=== PATIENT | female | born 1945 | race Caucasian/White ===

== ENCOUNTER → 2016-10-04 | Outpatient (CLI) | payer OTHER, MEDICARE ==
[2016-10-04 15:16] LABS: BASOPHILS # (AUTO) 0.07 10*3/UL; HEMOGLOBIN 13.5 g/dL (12.0-16.0); IMM GRAN % (AUTO) 0.1 % (0-5); IMM GRAN# (AUTO) 0.01 10*3/UL; LYMPHOCYTES # (AUTO) 2.56 10*3/uL; LYMPHOCYTES % (AUTO) 36.2 % (10-50); MEAN CORPUSCULAR HEMOGLOBIN 30.3 PG (27-31); MEAN CORPUSCULAR HGB CONC 33.8 g/dL (33-37); MEAN PLATELET VOLUME 9.3 FL (7.4-12.2); MONOCYTES # (AUTO) 0.54 10*3/UL (0.3-0.8); MONOCYTES % (AUTO) 7.6 % (5-15); NEUTROPHILS # (AUTO) 3.62 10*3/UL; NEUTROPHILS % (AUTO) 51.1 % (50-80); PLATELET MORPHOLOGY COMMENT NORMAL MORPHOLOGY (NORM); RDW COEFFICIENT OF VARIATION 14.1 % (11.5-14.5); RED BLOOD COUNT 4.45 10^6/uL (4.20-5.40); WHITE BLOOD COUNT 7.08 10^3/uL (4.8-10.8)
[2016-10-04 15:25] LABS: BUN/CREATININE RATIO 16.25 (6-20); CALCIUM 9.3 mg/dL (8.7-10.7); CREATININE 0.8 mg/dL (0.50-1.20); POTASSIUM 4.1 meq/L (3.8-5.2)
== END ==
LOC: MOB LAB 14:57
DX: R10.84 Generalized abdominal pain (principal); R82.99 Other abnormal findings in urine
CPT/HCPCS: 36415; 80048; 85025; 87088

== ENCOUNTER → 2016-10-07 | Outpatient (CLI) | payer OTHER, MEDICARE | LOC: MOB LAB 07:15 | DX: A04.7 Enterocolitis due to Clostridium difficile (principal) | CPT/HCPCS: 87088 ==

== ENCOUNTER → 2016-10-26 | Outpatient (CLI) | payer OTHER, MEDICARE ==
[2016-10-26 10:28] LABS: BASOPHILS # (AUTO) 0.07 10*3/UL; HEMATOCRIT 39.9 % (37.0-47.0); HEMOGLOBIN 13.6 g/dL (12.0-16.0); IMM GRAN % (AUTO) 0 % (0-5); IMM GRAN# (AUTO) 0 10*3/UL; LYMPHOCYTES # (AUTO) 2.15 10*3/uL; LYMPHOCYTES % (AUTO) 31.3 % (10-50); MEAN CORPUSCULAR HEMOGLOBIN 31.3 PG (27-31); MEAN CORPUSCULAR HGB CONC 34.1 g/dL (33-37); MEAN PLATELET VOLUME 9.1 FL (7.4-12.2); MONOCYTES % (AUTO) 7.3 % (5-15); NEUTROPHILS % (AUTO) 58.4 % (50-80); RED BLOOD COUNT 4.35 10^6/uL (4.20-5.40); WHITE BLOOD COUNT 6.86 10^3/uL (4.8-10.8)
[2016-10-26 10:55] LABS: BILIRUBIN,TOTAL 0.4 mg/dL (0.3-1.2); BUN/CREATININE RATIO 15.71 (6-20); CALCIUM 9.2 mg/dL (8.7-10.7); CREATININE 0.7 mg/dL (0.50-1.20); POTASSIUM 3.6 meq/L (3.8-5.2); TOTAL PROTEIN 7.5 g/dL (6.1-8.0)
[2016-10-26 11:10] LABS: PLATELET MORPHOLOGY COMMENT NORMAL MORPHOLOGY (NORM)
--- NOTE | 2016-10-26 11:29 | DI ---
CT ABDOMEN/PELVIS W/O CONTRAST,10/26/2016 10:16 AM: Clinical History: Right lower quadrant pain, left lower quadrant pain and pelvic pain. Previous Exam: None at this facility. Findings: Multiple helically acquired CT images are obtained through the abdomen and pelvis without contrast, a nd demonstrate a normal appendix. There is moderate stool noted throughout the colon. The adrenals and kidneys are unremarkable. There is no hydronephrosis nor nephrolithiasis. The urinary bladder is unremarkable. The gallbladder is also unremarkable. The spleen, adrenals and stomach are grossly normal. Lung bases are clear. There is levoscoliosis of the lumbar spine centered at the L3 level with degenerative changes through out. There are mild early degenerative changes of the hips noted as well. Impression: 1. No acute intra-abdominal pathology. 2. Normal appendix. 3. Levoscoliosis of the lumbar spine with diffuse degenerative disc disease.
[2016-10-26 14:01] LABS: BILIRUBIN,URINE NEGATIVE (NEG); CLARITY,URINE CLEAR (CLEAR); GLUCOSE, URINE (UA) NEGATIVE (NEG); LEUKOCYTE ESTERASE ,URINE NEGATIVE (NEG); NITRATE,URINE NEGATIVE (NEG); OCCULT BLOOD,URINE Trace-intact (NEG); PROTEIN,URINE NEGATIVE (NEG); UROBILINOGEN,URINE 0.2 EU/dL (0.2)
[2016-10-26 14:06] LABS: URINE SAMPLE TYPE VOIDED SPECIMEN
[2016-10-26 14:07] LABS: RBC,URINE 0-2 /hpf; SQUAMOUS EPITHELIAL CELL,UR FEW
== END ==
LOC: CT 10:08
PROVIDERS: ATTEND Nurse Practitioner Family
DX: R10.32 Left lower quadrant pain (principal); R10.31 Right lower quadrant pain; K62.5 Hemorrhage of anus and rectum; N94.89 Other specified conditions associated with female genital organs and menstrual cycle; N89.8 Other specified noninflammatory disorders of vagina
CPT/HCPCS: 36415; 74176; 80053; 81001; 85025; 87070; 87205

== ENCOUNTER → 2017-02-21 | Outpatient (CLI) | payer OTHER, MEDICARE ==
[2017-02-21 05:59] LABS: BASOPHILS # (AUTO) 0.06 10*3/UL; BASOPHILS % (AUTO) 0.7 % (0-1); EOSINOPHILS # (AUTO) 0.51 10*3/UL; HEMATOCRIT 41.7 % (37.0-47.0); HEMOGLOBIN 13.9 g/dL (12.0-16.0); LYMPHOCYTES # (AUTO) 2.43 10*3/uL; MEAN CORPUSCULAR HEMOGLOBIN 30.2 PG (27-31); MEAN CORPUSCULAR HGB CONC 33.3 g/dL (33-37); MEAN CORPUSCULAR VOLUME 90.5 FL (81-99); MEAN PLATELET VOLUME 9.2 FL (7.4-12.2); MONOCYTES # (AUTO) 0.63 10*3/UL (0.3-0.8); MONOCYTES % (AUTO) 7.4 % (5-15); NEUTROPHILS # (AUTO) 4.92 10*3/UL; NEUTROPHILS % (AUTO) 57.4 % (50-80); RED BLOOD COUNT 4.61 10^6/uL (4.20-5.40)
[2017-02-21 06:03] LABS: PLATELET MORPHOLOGY COMMENT NORMAL MORPHOLOGY (NORM); RBC MORPHOLOGY COMMENT NORMAL MORPHOLOGY (NORM); WBC MORPHOLOGY COMMENT NORMAL MORPHOLOGY (NORM)
[2017-02-21 06:13] LABS: HEMOGLOBIN A1C 5.83 % (4.2-6.0)
[2017-02-21 06:16] LABS: BUN/CREATININE RATIO 17.14 (6-20); CALCIUM 8.8 mg/dL (8.7-10.7); CHOL/HDL RATIO 2.94 RATIO (0-4.0); LDL CHOLESTEROL,CALCULATED 112.6 mg/dL; SERUM ALBUMIN 3.8 g/dL (3.5-4.8)
[2017-02-21 08:14] LABS: CREATININE, URINE 66.8 MG/DL (15-500)
== END ==
LOC: LAB 05:43
PROVIDERS: ATTEND Internal Medicine
DX: K62.5 Hemorrhage of anus and rectum (principal); A04.7 Enterocolitis due to Clostridium difficile; H35.60 Retinal hemorrhage, unspecified eye; Z79.890 Hormone replacement therapy; Z79.899 Other long term (current) drug therapy
CPT/HCPCS: 36415; 80053; 80061; 82043; 82550; 83036; 84443; 85025

== ENCOUNTER → 2017-03-01 | Outpatient (CLI) | payer OTHER, MEDICARE | LOC: MMPC 11:11 | PROVIDERS: ATTEND Internal Medicine | DX: E78.00 Pure hypercholesterolemia, unspecified (principal); Z86.010 Personal history of colon polyps; Z79.890 Hormone replacement therapy | CPT/HCPCS: 99214; G0463 ==